=== PATIENT | female | born 1975 | race Two or more races ===

== ENCOUNTER 2022-01-09 20:03 | Emergency (ER) | payer BC ==
[~2022-01-09] VITALS: Ht 165.1 cm; Wt 81.3 kg
[2022-01-09 22:45] VITALS: BP 147/77
== END 2022-01-09 22:48 | disposition home or self-care (01) ==
LOC: EMS 20:05
DX: S70.02XA Contusion of left hip, initial encounter (principal); X58.XXXA Exposure to other specified factors, initial encounter; Y93.89 Activity, other specified; Y92.89 Other specified places as the place of occurrence of the external cause; Y99.8 Other external cause status
CPT/HCPCS: 72170; 99283